=== PATIENT | female | born 1950 | race Caucasian/White ===

== ENCOUNTER → 2016-11-18 | Outpatient (CLI) | payer OTHER ==
--- NOTE | ~2016-11-18 | CR170 ---
[facility] A Service of [facility] / [facility] RADIOLOGY TEXT RESULTS PATIENT: FE LAGUNAS LOCATION: [facility] : 52 UNIT #: [id number] AGE: [address]: Karel Hinton MD SEX: F ORDER DR: [id number] [place] [id number] O MR#: [id number] Acc #: [id number] NAME: FE LAGUNAS : 1950 SEX: F STUDY DATE/TIME: 11/18/2016 15:12 UNIT: SRAD ROOM: STUDY DESCRIPTION: CR Knee 2 Views Rt Attending Physician: Karel Hinton M.D. Ordering Physician: Karel Hinton M.D. Primary Care Physician: Karel Hinton M.D. MEDICAL IMAGING REPORT This report is preliminary unless electronic signature is present. EXAM Right knee, 11/18/2016 HISTORY A 65-year-old female with right knee pain and swelling for 1 year. No specific injury. COMPARISON STUDIES Right knee 11/26/2015 FINDINGS Two views right knee demonstrate no acute fracture or dislocation. Small joint effusion. Mild degenerative change patellofemoral joint. Severe medial compartment joint space narrowing. Mild degenerative change of the lateral compartment. IMPRESSION 1. No evidence of acute fracture or dislocation. 2. 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 3. Small joint effusion Dictated by... Guicho Puckett M.D. THIS IS AN ELECTRONICALLY VERIFIED REPORT Guicho Puckett M.D. at 11/19/2016 9:02 AM TING/erickson TD: 11/19/2016 04:38 JOB #: [id number] [facility] A Service of [facility] RADIOLOGY TEXT RESULTS PATIENT: FE LAGUNAS LOCATION: [facility] : 52 UNIT #: [id number] AGE: [address]: Karel Hinton MD SEX: F ORDER DR: MEDICAL IMAGING REPORT Page 1 of 1
== END | disposition home or self-care (01) ==
LOC: SRAD 15:06
DX: M25.461 Effusion, right knee (principal); M17.11 Unilateral primary osteoarthritis, right knee
CPT/HCPCS: 73560